=== PATIENT | female | born 1955 | race Caucasian/White ===

== ENCOUNTER 2022-01-09 11:19 | Outpatient (CLI) | payer MEDICARE, SELFPAY ==
[2022-01-09 19:30] LABS: Hemoglobin A1C 6.1 % (<5.7)
[2022-01-09 19:52] LABS: Basophils Absolute Auto 0.1 K/mm3 (0.0-0.1); Basophils Percent Auto 0.8 % (0.2-1.2); Eosinophils Absolute Auto 0.3 K/mm3 (0-0.3); Hematocrit 44.6 % (37.0-47.0); Hemoglobin 13.4 g/dL (12.0-15.0); Immature Granulocyte Absolute 0.02 K/mm3 (0.00-0.031); Immature Granulocyte Percent A 0.3 % (0-0.5); Lymphocytes Absolute Auto 1.97 K/mm3 (0.9-3.2); Lymphocytes Percent Auto 25.4 % (18.3-44.2); Mean Corpuscular Hemoglobin 27.1 pg (26-34); Mean Corpuscular Volume 90.1 fl (80-100); Mean Platelet Volume 11.5 fl (7.4-10.4); Monocytes Absolute Auto 0.6 K/mm3 (0.1-0.6); Monocytes Percent Auto 7.1 % (2.6-8.5); Neutrophils Absolute Auto 4.8 K/mm3 (1.3-6.7); Neutrophils Percent Auto 62.4 % (45.5-73.1); Platelet Count Result 328 k/mm3 (150-375); Red Blood Count 4.95 M/mm3 (4.2-5.4); White Blood Count 7.8 K/mm3 (4.5-10.0)
[2022-01-09 20:02] LABS: Thyroid Stimulating Hormone 0.252 uIU/mL (0.465-4.680)
[2022-01-09 20:15] LABS: Creatinine Urine 135.8 mg/dL
[2022-01-09 20:20] LABS: MALB Creatinine Ratio 11.4 mg/g (0-30); Microalbumin Urine Random 15.5 mg/L (0-16.7)
[2022-01-09 21:46] LABS: Free T4 Free Thyroxine 1.14 ng/mL (0.78-2.19); Vitamin D 25 Hydroxy 28.2 ng/mL
[2022-01-12 05:19] LABS: Triiodothyronine T3 Free 2.7 pg/mL (2.3-4.2)
== END 2022-01-09 11:20 | disposition home or self-care (01) ==
PROVIDERS: PCP Family Medicine; Visit Provider Family Medicine
DX: E03.9 Hypothyroidism, unspecified (principal); F41.9 Anxiety disorder, unspecified; I10 Essential (primary) hypertension; M46.1 Sacroiliitis, not elsewhere classified; R53.83 Other fatigue; E11.9 Type 2 diabetes mellitus without complications; E55.9 Vitamin D deficiency, unspecified
CPT/HCPCS: 36415; 82043; 82306; 82607; 83036; 84439; 84443; 84481; 85025

== ENCOUNTER → 2022-01-28 11:45 | Outpatient (CLI) | payer MEDICARE, SELFPAY ==
--- NOTE | ~2022-01-28 | DEXA_ITS ---
Bone Density Report Name: KAREEM DODSON Age: 66 Sex: Female Ethnicity: White Date of : 1955 Indication: postmenopausal; screening for osteoporosis; height loss; Referring Provider: MARIAA HERNANDEZ Study: Bone densitometry was performed. Exam Date: January 28, 2022 Accession number: [id number] Bone Density: Region BMD T-score Z-score Classification AP Spine (L1-L4) 0.874 -1.6 0.5 Osteopenia Femoral Neck (Left) 0.626 -2.0 -0.3 Osteopenia Total Hip (Left) 0.801 -1.2 0.3 Osteopenia Femoral Neck (Right) 0.597 -2.3 -0.5 Osteopenia Total Hip (Right) 0.780 -1.3 0.1 Osteopenia Total Hip Mean 0.791 -1.3 0.2 Osteopenia World Health Organization criteria for BMD impression classify patients as: Normal (T-score at or above -1.0), Osteopenia (T-score between -1.0 and -2.5), or Osteoporosis (T-score at or below -2.5). 10-year Fracture Risk(1): Major Osteoporotic Fracture 13% Hip Fracture 2.7% Reported Risk Factors: [place] (), Neck BMD=0.597, BMI=25.2 (1) FRAX(R) Version 3.08. Fracture probability calculated for an untreated patient. Fracture probability may be lower if the patient has received treatment. Clinical Information Provided by Patient: Has used the following medications: Vitamin D Patient maximum height was 67 Menopause Age: 46 No regular weight bearing exercise Drinks caffeinated beverages Onset of menses at age 10 Number of children 2 Impression: The patient has low bone mass, based on the Right Femoral Neck T-score. The patient has an estimated ten-year risk of hip fracture of 2.7% and an estimated ten-year risk of major fracture of 13%, based on the WHO FRAX algorithm. Discussion: BONE DENSITY IS LOW AT ONE OR MORE SKELETAL SITES. This patient's lowest T-score is low at one or more skeletal sites. It meets the World Health Organization's (WHO) criteria for ?low bone mass? (T-score between -1.0 and -2.5). The patient's 10-year risk of fracture as calculated by FRAX is less than the threshold where pharmacological therapy is recommended by the National Osteoporosis Foundation (NOF). However, all treatment decisions require clinical judgment and consideration of individual patient factors, including patient preferences, comorbidities, previous drug use, risk factors not captured in the FRAX model (e.g., frailty, falls, vitamin D deficiency, increased bone turnover, interval significant decline in bone density) and possible under or overestimation of fracture risk by FRAX. The patient should follow a healthful lifestyle (good nutrition with adequate calcium and vitamin D, and appropriate weight-bearing exercise). Follow-Up: Consider repeating this study in 2 to 3 years to reassess this patient's status, or sooner if there is some new clinical indication. Reported by:
== END ==
PROVIDERS: PCP Family Medicine; Visit Provider Family Medicine
DX: Z78.0 Asymptomatic menopausal state (principal); M85.88 Other specified disorders of bone density and structure, other site; M85.852 Other specified disorders of bone density and structure, left thigh; M85.851 Other specified disorders of bone density and structure, right thigh
CPT/HCPCS: 77080

== ENCOUNTER 2022-04-15 10:45 | Outpatient (CLI) | payer MEDICARE, SELFPAY ==
[2022-04-15 21:04] LABS: T4 Thyroxine 7.17 ug/dL (5.53-11.0)
[2022-04-15 21:17] LABS: Vitamin D 25 Hydroxy 48.5 ng/mL
[2022-04-15 21:39] LABS: Vitamin B12 > 1000.0 pg/mL (239-931)
[2022-04-18 06:22] LABS: Triiodothyronine T3 Free 2.8 pg/mL (2.3-4.2)
== END 2022-04-15 10:46 | disposition home or self-care (01) ==
PROVIDERS: PCP Family Medicine; Visit Provider Family Medicine
DX: E03.9 Hypothyroidism, unspecified (principal); E11.9 Type 2 diabetes mellitus without complications; E53.8 Deficiency of other specified B group vitamins; E55.9 Vitamin D deficiency, unspecified
CPT/HCPCS: 36415; 82306; 82607; 84436; 84443; 84481

== ENCOUNTER 2022-08-01 07:50 | Outpatient (CLI) | payer MEDICARE, SELFPAY ==
[2022-08-01 19:58] LABS: Hematocrit 45.5 % (37.0-47.0); Hemoglobin 13.9 g/dL (12.0-15.0); Mean Corpuscular HGB Conc 30.5 g/dl (32-36); Mean Corpuscular Hemoglobin 27.9 pg (26-34); Mean Corpuscular Volume 91.4 fl (80-100); Mean Platelet Volume 12.1 fl (7.4-10.4); Platelet Count Result 268 k/mm3 (150-375); Red Blood Count 4.98 M/mm3 (4.2-5.4); White Blood Count 4.4 K/mm3 (4.5-10.0)
[2022-08-01 20:07] LABS: Alanine Aminotransferase 22 U/L (6-35); Albumin Level 4.7 g/dL (3.5-5.1); Alkaline Phosphatase 150 U/L (38-126); Anion Gap 6 mmol/L (8-16); Aspartate Amino Transferase 48 U/L (14-36); Bilirubin,Total 0.5 mg/dL (0.2-1.3); Blood Urea Nitrogen 15 mg/dL (7-17); Calcium 9.4 mg/dL (8.4-10.2); Carbon Dioxide 31 mmol/L (22-30); Chloride 104 mmol/L (98-107); Estimated Glomerular Filt Rate > 60; Glucose 101 mg/dL (65-110); Potassium 3.8 mmol/L (3.4-5.0); Sodium 141 mmol/L (137-145)
[2022-08-01 20:35] LABS: Thyroid Stimulating Hormone 0.516 uIU/mL (0.465-4.680)
[2022-08-01 20:38] LABS: Hemoglobin A1C 6.2 % (<5.7)
[2022-08-01 21:17] LABS: MALB Creatinine Ratio 10.7 mg/g (0-30); Microalbumin Urine Random 22.7 mg/L (0-16.7)
== END 2022-08-01 07:51 | disposition home or self-care (01) ==
LOC: ANHBWCLAB 07:52
PROVIDERS: PCP Family Medicine; Visit Provider Family Medicine
DX: E03.9 Hypothyroidism, unspecified (principal); E11.9 Type 2 diabetes mellitus without complications; F33.1 Major depressive disorder, recurrent, moderate; I10 Essential (primary) hypertension; E53.8 Deficiency of other specified B group vitamins; E55.9 Vitamin D deficiency, unspecified
CPT/HCPCS: 36415; 80053; 82043; 83036; 84443; 85027

== ENCOUNTER 2023-01-13 11:13 | Outpatient (CLI) | payer MEDICARE, SELFPAY ==
[2023-01-13 19:25] LABS: Hemoglobin A1C 6.1 % (<5.7)
[2023-01-13 19:27] LABS: Anion Gap 8 mmol/L (8-16); Blood Urea Nitrogen 16 mg/dL (7-17); Calcium 9.9 mg/dL (8.4-10.2); Carbon Dioxide 29 mmol/L (22-30); Chloride 101 mmol/L (98-107); Cholesterol 198 mg/dL (0-200); Estimated Glomerular Filt Rate > 60; Glucose 101 mg/dL (65-110); HDL Direct 51 mg/dL; Potassium 4.3 mmol/L (3.4-5.0); Sodium 138 mmol/L (137-145); Triglycerides 202 mg/dL (<150)
[2023-01-13 19:38] LABS: LDL Cholesterol Direct 103 mg/dL
[2023-01-13 19:52] LABS: Creatinine Urine 40.4 mg/dL
[2023-01-13 19:55] LABS: Thyroid Stimulating Hormone 0.125 uIU/mL (0.465-4.680)
[2023-01-13 21:14] LABS: MALB Creatinine Ratio < 14.9 mg/g (0-30); Microalbumin Urine Random < 6.0 mg/L (0-16.7)
== END 2023-01-13 11:14 | disposition home or self-care (01) ==
PROVIDERS: PCP Nurse Practitioner Adult Health; Visit Provider Nurse Practitioner Adult Health
DX: E11.9 Type 2 diabetes mellitus without complications (principal); E03.9 Hypothyroidism, unspecified
CPT/HCPCS: 36415; 80048; 80061; 82043; 83036; 84443

== ENCOUNTER 2023-01-21 11:28 | Outpatient (CLI) | payer MEDICARE, SELFPAY ==
--- NOTE | ~2023-01-21 | XR_ITS ---
EXAMINATION: XR hand LT min 3V INDICATION: Left hand pain TECHNIQUE: Three views of the left hand are obtained. COMPARISON: None available FINDINGS: Bone alignment is normal. There is no fracture. There is moderate osteoarthritis of multipl e interphalangeal joints. There is moderate to severe osteoarthritis at the third proximal interphala ngeal joint. The soft tissues are unremarkable. IMPRESSION: 1. Polyarticular osteoarthritis. Reviewed, dictated and finalized at location F.
--- NOTE | ~2023-01-21 | XR_ITS ---
EXAMINATION: XR hand RT min 3V INDICATION: Right hand pain TECHNIQUE: Three views of the right hand are obtained. COMPARISON: None available FINDINGS: Bone alignment is normal. There is no fracture. There is mild osteoarthritis of multiple in terphalangeal joints. The soft tissues are unremarkable. IMPRESSION: 1. Polyarticular osteoarthritis. Reviewed, dictated and finalized at location F.
== END 2023-01-21 11:29 | disposition home or self-care (01) ==
PROVIDERS: PCP Nurse Practitioner Adult Health; Visit Provider Plastic Surgery
DX: M19.041 Primary osteoarthritis, right hand (principal); M19.042 Primary osteoarthritis, left hand
CPT/HCPCS: 73130

== ENCOUNTER 2023-03-24 08:34 | Outpatient (CLI) | payer MEDICARE, SELFPAY | END 2023-03-24 08:35 | disposition home or self-care (01) | LOC: ANHBWCLAB 08:36 | PROVIDERS: PCP Nurse Practitioner Adult Health; Visit Provider Nurse Practitioner Adult Health | DX: E03.9 Hypothyroidism, unspecified (principal) | CPT/HCPCS: 36415; 84443 ==

== ENCOUNTER 2023-07-14 10:58 | Outpatient (CLI) | payer MEDICARE, SELFPAY ==
[2023-07-14 18:17] LABS: Basophils Absolute Auto 0.1 K/mm3 (0.0-0.1); Basophils Percent Auto 1.4 % (0.2-1.2); Eosinophils Absolute Auto 0.2 K/mm3 (0-0.3); Eosinophils Percent Auto 3.7 % (0-4.4); Hematocrit 42.6 % (37.0-47.0); Hemoglobin 12.7 g/dL (12.0-15.0); Immature Granulocyte Absolute 0.01 K/mm3 (0.00-0.031); Immature Granulocyte Percent A 0.2 % (0-0.5); Lymphocytes Absolute Auto 1.95 K/mm3 (0.9-3.2); Lymphocytes Percent Auto 29.9 % (18.3-44.2); Mean Corpuscular HGB Conc 29.8 g/dl (32-36); Mean Corpuscular Hemoglobin 27.2 pg (26-34); Mean Corpuscular Volume 91.2 fl (80-100); Mean Platelet Volume 11.5 fl (7.4-10.4); Monocytes Absolute Auto 0.7 K/mm3 (0.1-0.6); Monocytes Percent Auto 11.2 % (2.6-8.5); Neutrophils Absolute Auto 3.5 K/mm3 (1.3-6.7); Neutrophils Percent Auto 53.6 % (45.5-73.1); Platelet Count Result 309 k/mm3 (150-375); Red Blood Count 4.67 M/mm3 (4.2-5.4); Red Cell Distribution Width 14.3 % (11.5-14.5); White Blood Count 6.5 K/mm3 (4.5-10.0)
[2023-07-14 18:37] LABS: Hemoglobin A1C 6.4 % (<5.7)
[2023-07-14 18:58] LABS: Thyroid Stimulating Hormone Reflex 0.706 uIU/mL (0.465-4.68)
[2023-07-14 19:00] LABS: Alanine Aminotransferase 16 U/L (6-35); Albumin Level 4.5 g/dL (3.5-5.1); Alkaline Phosphatase 152 U/L (38-126); Anion Gap 8 mmol/L (8-16); Aspartate Amino Transferase 46 U/L (14-36); Bilirubin,Total 0.9 mg/dL (0.2-1.3); Blood Urea Nitrogen 16 mg/dL (7-17); Carbon Dioxide 27 mmol/L (22-30); Chloride 103 mmol/L (98-107); Cholesterol 185 mg/dL (0-200); Estimated Glomerular Filt Rate > 60; Glucose 97 mg/dL (65-110); HDL Direct 51 mg/dL; Magnesium 2.2 mg/dL (1.6-2.3); Potassium 3.6 mmol/L (3.4-5.0); Sodium 138 mmol/L (137-145); Triglycerides 171 mg/dL (<150)
[2023-07-14 19:10] LABS: LDL Cholesterol Direct 104 mg/dL
[2023-07-14 20:16] LABS: Folic Acid 11.6 ng/mL (2.76->20); Vitamin B12 > 1000.0 pg/mL (239-931)
== END 2023-07-14 10:59 | disposition home or self-care (01) ==
LOC: ANHBWCLAB 11:00
PROVIDERS: PCP Nurse Practitioner Adult Health; Visit Provider Nurse Practitioner Adult Health
DX: E55.9 Vitamin D deficiency, unspecified (principal); E53.8 Deficiency of other specified B group vitamins; I10 Essential (primary) hypertension; E11.9 Type 2 diabetes mellitus without complications
CPT/HCPCS: 36415; 80053; 80061; 82306; 82607; 82746; 83036; 83735; 84443; 85025

== ENCOUNTER 2023-10-19 08:34 | Outpatient (CLI) | payer MEDICARE, SELFPAY ==
[2023-10-19 20:40] LABS: Thyroid Stimulating Hormone 0.638 uIU/mL (0.465-4.680)
[2023-10-19 21:00] LABS: Vitamin B12 > 1000.0 pg/mL (239-931)
== END 2023-10-19 08:35 | disposition home or self-care (01) ==
LOC: ANHBWCLAB 08:35
PROVIDERS: PCP Nurse Practitioner Adult Health; Visit Provider Nurse Practitioner Adult Health
DX: R79.89 Other specified abnormal findings of blood chemistry (principal); E03.9 Hypothyroidism, unspecified; L80 Vitiligo
CPT/HCPCS: 36415; 82607; 84443

== ENCOUNTER 2023-12-23 11:29 | Outpatient (CLI) | payer MEDICARE, SELFPAY ==
[2023-12-23 20:04] LABS: Creatinine Urine 30.6 mg/dL
[2023-12-23 20:19] LABS: Estimated Glomerular Filt Rate > 60
[2023-12-23 20:21] LABS: MALB Creatinine Ratio < 19.6 mg/g (0-30); Microalbumin Urine Random < 6.0 mg/L (0-16.7)
== END 2023-12-23 11:30 | disposition home or self-care (01) ==
PROVIDERS: PCP Nurse Practitioner Adult Health; Visit Provider Nurse Practitioner Adult Health
DX: E11.9 Type 2 diabetes mellitus without complications (principal)
CPT/HCPCS: 36415; 82043; 82565

== ENCOUNTER 2024-01-14 11:52 | Outpatient (CLI) | payer MEDICARE, SELFPAY ==
--- NOTE | ~2024-01-14 | XR_ITS ---
XR knee RT 3V Ordering provider: Livier Hi APRN History: . M25.561 - Pain in right knee . Comparison: None. FINDINGS: BONES: No acute fracture or dislocation. JOINT SPACES: Normal. SOFT TISSUES: Normal. IMPRESSION: No acute osseous abnormality right knee. Reviewed, dictated and finalized at location A.
== END 2024-01-14 11:53 | disposition home or self-care (01) ==
PROVIDERS: PCP Nurse Practitioner Adult Health; Visit Provider Nurse Practitioner Adult Health
DX: M25.561 Pain in right knee (principal)
CPT/HCPCS: 73562

== ENCOUNTER 2024-02-01 10:10 | Outpatient (CLI) | payer MEDICARE, SELFPAY ==
[2024-02-01 18:54] LABS: Alanine Aminotransferase 16 U/L (6-35); Albumin Level 4.6 g/dL (3.5-5.1); Alkaline Phosphatase 142 U/L (38-126); Anion Gap 7 mmol/L (4-12); Aspartate Amino Transferase 45 U/L (14-36); Bilirubin,Total 0.7 mg/dL (0.2-1.3); Blood Urea Nitrogen 17 mg/dL (7-17); Calcium 9.8 mg/dL (8.4-10.2); Carbon Dioxide 30 mmol/L (22-30); Chloride 102 mmol/L (98-107); Cholesterol 202 mg/dL (0-200); Estimated Glomerular Filt Rate > 60; Glucose 103 mg/dL (65-110); HDL Direct 55 mg/dL; Potassium 4.3 mmol/L (3.4-5.0); Sodium 139 mmol/L (137-145); Triglycerides 203 mg/dL (<150)
[2024-02-01 19:05] LABS: LDL Cholesterol Direct 93 mg/dL
[2024-02-01 19:23] LABS: Thyroid Stimulating Hormone 0.662 uIU/mL (0.465-4.680)
[2024-02-01 20:41] LABS: Creatinine Urine 122.7 mg/dL
[2024-02-01 20:47] LABS: MALB Creatinine Ratio 6.1 mg/g (0-30); Microalbumin Urine Random 7.5 mg/L (0-16.7)
[2024-02-01 21:52] LABS: Hemoglobin A1C 6.5 % (<5.7)
[2024-02-01 22:01] LABS: Vitamin D 25 Hydroxy 40.7 ng/mL
== END 2024-02-01 10:11 | disposition home or self-care (01) ==
PROVIDERS: PCP Nurse Practitioner Adult Health; Visit Provider Nurse Practitioner Adult Health
DX: E11.9 Type 2 diabetes mellitus without complications (principal); E55.9 Vitamin D deficiency, unspecified; E53.8 Deficiency of other specified B group vitamins; E03.9 Hypothyroidism, unspecified
CPT/HCPCS: 36415; 80053; 80061; 82043; 82306; 82565; 82607; 83036; 84443

== ENCOUNTER 2024-07-12 08:53 | Outpatient (CLI) | payer MEDICARE, SELFPAY ==
--- NOTE | ~2024-07-12 | XR_ITS ---
Lumbosacral Spine: AP and lateral views Clinical History: Pain Findings: The normal lordotic curve is maintained. No fracture or subluxation. There is advanced dege nerative disc narrowing at L5-S1. There is moderate degenerative disc change in the range of the lumb ar spine. There is advanced facet arthropathy throughout the lumbar spine. The sacroiliac joints are normally outlined. Impression: Moderate to advanced degenerative spondylosis, as above. Reviewed, dictated and finalized at location M. Impression: Moderate to advanced degenerative spondylosis, as above.
--- NOTE | ~2024-07-12 | XR_ITS ---
AP view of the pelvis and AP and lateral views of the left hip Clinical history: Pain Findings: No acute fracture or dislocation is seen. Osseous alignment is anatomic. Bilateral hip and SI joint spaces are preserved. Soft tissues are unremarkable. Impression: No significant abnormality is seen. Reviewed, dictated and finalized at [facility]. Impression: No significant abnormality is seen.
--- OUTSIDE RECORDS SUMMARY | 2024-07-12 09:23 | XMS_ITS | Referral Summary ---
Author Organization [facility] Address [address] [place] [address] Care Team Providers Care Glass Washer Name Role Phone Raymon Collier MD Primary Care Provider [phone] [phone] Allergies No known active allergies Medications atorvastatin (LIPITOR) 40 mg tablet 8 Active levothyroxine (SYNTHROID, LEVOTHROID) 100 mcg tablet 8 Active venlafaxine XR (EFFEXOR-XR) 75 mg 24 hr capsule 8 Active irbesartan-hydr oCHLOROthiazide (AVALIDE) 300-12.5 mg per tablet Take 1 tablet by mouth daily 3 9 Active ALPRAZolam (XANAX) 0.5 mg tablet Take by mouth 2 (two) times a day as needed 1 Active metFORMIN XR (GLUCOPHAGE XR) 500 mg 24 hr tablet Take 1 tablet (500 mg total) by mouth daily 2 Active cholecalciferol (VITAMIN D-3) 5,000 unit capsule Take 1 capsule (5,000 Units total) by mouth daily 2 Active Vitamin B-12 5,000 mcg tablet, sublingual PLACE 1 UNDER THE TONGUE ONCE DAILY 2 Active loteprednol (LOTEMAX) 0.5 % ophthalmic suspension Administer 1 drop into the right eye daily 5 mL 11 3 Active Active Problems Problem Noted Date Diagnosed Date 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 Assessment & Plan (01/21/2022 11:23 AM CDT): Clear graft CPM Assessment & Plan (12/20/2020 4:15 PM CDT): Clear graft CPM Aphakia of eye, right 12/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 Assessment & Plan (01/21/2022 11:23 AM CDT): Hx of explant of SN60WF Assessment & Plan (12/20/2020 4:16 PM CDT): Hx of explant of SN60WF Corneal endothelial dystrophy 05/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 Instructions given A.m. 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 Mayo S/p PKP OD Assessment & Plan (01/21/2022 11:24 AM CDT): Confocal 06/14 OS 1074 1100 933 Uncountable - continue polycarbonate lenses - continue LTX OD qdaily (hx PKP OD) - good vision OS, able to perform ADLS + monocular will monitor. Plan: RTC 12 months Assessment & Plan (12/20/2020 3:32 PM CDT): Confocal 06/14 OS 1074 1100 933 Uncountable - continue polycarbonate lenses - continue LTX OD qdaily (hx PKP OD) - good vision OS, able to perform ADLS + monocular will monitor. Plan: RTC 12 months Assessment & Plan (05/17/2019 11:08 AM KNIT GOODS PRESS HAND): Confocal 06/14 12/12 09/12 Today OS 1074 1100 933 Uncountable - continue polycarbonate lenses - continue LTX OD qdaily (hx PKP OD) - confocal today uncountable OS with mild, stable superior stromal edema, never started Brijesh - Plan: RTC 6 months Assessment & Plan (09/23/2018 12:56 PM CDT): Confocal 06/14 12/12 Today OS 1074 1100 933 -stable -6-8 mos w/ repeat confocal Polycarbonate lenses with new spectacles Mild superior edema OS-Brijesh 128 p.r.n. In the future Assessment & Plan (12/01/2017 11:33 AM CDT): Confocal 12/01/17 1100-OS, stable from 1074 (6mo ago) F/u 8mo with repeat confocal Assessment & Plan (12/01/2017 10:17 AM CDT): -Management per Dr. Walters -Pt to get cell count today -status post (s/p) penetrating keratoplasty (PKP) OD Social History Tobacco Use Types Packs/Day Years Used Date Smoking Tobacco: Never Smokeless Tobacco: Never Comments Unknown Sex and Gender Information Value Date Recorded Sex Assigned at Not on file Legal Sex Female 3:13 PM KNIT GOODS PRESS HAND Gender Identity Not on file Sexual Orientation Not on file Last Filed Vital Signs Vital Sign Reading Time Taken Comments Blood Pressure 166/98 03/14/2014 3:48 PM KNIT [employer] PRESS HAND Pulse 93 03/14/2014 3:48 PM KNIT [employer] PRESS HAND Temperature - - Respiratory Rate - - Oxygen Saturation - - Inhaled Oxygen Concentration - - Weight 73 kg (161 lb) 03/14/2014 3:48 PM KNIT GOODS PRESS HAND Height 167.6 cm (5' 6 ) 12/07/2023 9:13 AM CDT Body Mass Index 25.99 03/14/2014 3:48 PM KNIT GOODS PRESS HAND Plan of Treatment Not on file Procedures Procedure Name Priority Date/Time Associated Diagnosis Comments SCREENING MAMMOGRAM BILATERAL W BAKARI Schedule Routine, Read Routine (OP Routine) 12/07/2023 9:21 AM CDT Screening mammogram, encounter for from Last 3 Months or Most Recently Relevant to Health Maintenance Results * Screening Mammogram Bilateral W Bakari (12/07/2023 9:21 AM CDT) Anatomical Region Laterality Modality Breast Bilateral Mammography 12/07/2023 9:41 AM CDT Impressions 12/07/2023 9:41 AM CDT There is no mammographic evidence of malignancy. A 1 year screening mammogram is recommended. BI-RADS: 2 - Benign. The patient has been or will be contacted. The patient will be entered into a reminder system with a target due date of 1 year for her next mammogram. Electronically signed by: Michelle Valladares M.D. Narrative 12/07/2023 9:41 AM CDT EXAMINATION: SCREENING MAMMOGRAM BILATERAL W BAKARI ORDERING HEALTHCARE PROVIDER: SELF SCREENING MAMMOGRAM HISTORY: Routine screening mammography. COMPARISON: 10/14/2022, 08/27/2021, 08/22/2021, 05/08/2020, 02/24/2019 TECHNIQUE: CC and MLO views of the bilateral breasts were obtained with digital technique using breast tomosynthesis with C view. Computer aided detection was utilized. FINDINGS: DENSITY: The tissue of the bilateral breasts is heterogeneously dense, which may obscure small masses. BREASTS: There are postsurgical changes in the superior right breast. A cyst is again seen in the posterior left breast. There are no suspicious masses, suspicious calcifications, or other suspicious findings in either breast. There has been no suspicious interval change. us Self Screening Mammogram IMG MAMMO PROCEDURES Fi nal Result from Last 3 Months or Most Recently Relevant to Health Maintenance Insurance [employer] MEDICARE AETNA MEDICARE AETNA MEDICARE Care Teams Glass Washer Relationship Specialty Start Date End Date Raymon Collier MD PCP - General Family Practice 01/21/22
--- OUTSIDE RECORDS SUMMARY | 2024-07-12 09:23 | XMS_ITS | Clinical Summary ---
Author Organization [facility] Address [address] [place] [address] Care Team Providers Care Bellman Name Role Phone Raymon Collier MD Primary Care Provider [phone] Allergies No known active allergies Medications atorvastatin [...] months Assessment & Plan (05/17/2019 11:25 AM SLURRY MIXER): Brijesh 128 drops/ointment p.r.n. Instructions given A.m. [...] months Assessment & Plan (05/17/2019 11:08 AM SLURRY MIXER): Confocal 06/14 12/12 09/12 Today OS 1074 [...] -status post (s/p) penetrating keratoplasty (PKP) OD Surgical History Surgery Date Site/Laterality Comments CATARACT EXTRACTION RETINAL DETACHMENT SURGERY BREAST BIOPSY 04/27/1999 - 04/26/2000 Right benign surgical bx Medical History Medical History Date Comments Retinal detachment Cataract Family History Medical History Relation Name Comments Heart disease Father Family history of cardiac disorder - (Added by LUKE Conv) Hypertension Mother Family history of hypertension - (Added by LUKE Conv) Breast cancer Neg Hx Ovarian cancer Neg Hx Thyroid cancer Neg Hx Relation Name Status Comments Father Mother Social History Tobacco Use Types Packs/Day Years Used Date Smoking Tobacco: Never Smokeless Tobacco: Never Comments Unknown Sex and Gender Information Value Date Recorded Sex Assigned at Not on file Legal Sex Female 3:13 PM SLURRY MIXER Gender Identity Not on file Sexual Orientation Not on file Obstetrics History Para Term AB IAB SAB Ectopic Multiple Livin g Live Births 3 2 2 Date Outcome GA Total Labor Labor//3rd Weight Sex Type Anes PTL Mary A1 A5 Name Clin Term Term Last Filed Vital Signs Vital Sign Reading Time Taken Comments Blood Pressure 166/98 03/14/2014 3:48 PM SLURRY MIXER Pulse 93 03/14/2014 3:48 PM SLURRY MIXER Temperature - - Respiratory Rate - - Oxygen Saturation - - Inhaled Oxygen Concentration - - Weight 73 kg (161 lb) 03/14/2014 3:48 PM SLURRY MIXER Height 167.6 cm (5' 6 ) 12/07/2023 9:13 AM CDT Body Mass Index 25.99 03/14/2014 3:48 PM SLURRY MIXER Plan of Treatment Health Maintenance Due Date Last Done Comments Colon Cancer Screening-Colonoscopy 1955 Depression Screening 1955 Fall Risk Assessment 1955 Hepatitis C Screening 1955 Osteoporosis Screening-Bone Density Scan 1955 Hepatitis B Screening 1971 Pneumococcal vaccine 65+ (1 of 1 - PCV) 2003 Zoster Vaccine (2 of 3) 12/04/2016 10/09/2016 Well Visit 65+ 2018 Influenza Vaccine (#1) 2023 01/12/2019, 2017 Breast Cancer Screening-Mammogram 12/06/2024 12/07/2023, 10/14/2022, 08/22/2021, Additional history exists DTaP/Tdap/Td Vaccine (2 - Td or Tdap) 10/21/2027 10/20/2017 Procedures Procedure Name Priority Date/Time Associated Diagnosis [...] Relevant to Health Maintenance Insurance AETNA MEDICARE [facility] MEDICARE [facility] MEDICARE Care Teams Bellman Relationship Specialty Start Date End Date Raymon Collier MD PCP - General Family Practice 01/21/22
[2024-07-12 19:32] LABS: Basophils Absolute Auto 0.1 K/mm3 (0.0-0.1); Basophils Percent Auto 1.1 % (0.2-1.2); Eosinophils Absolute Auto 0.3 K/mm3 (0-0.3); Eosinophils Percent Auto 4.8 % (0-4.4); Hematocrit 41.5 % (37.0-47.0); Hemoglobin 12.1 g/dL (12.0-15.0); Immature Granulocyte Absolute 0.01 K/mm3 (0.00-0.031); Immature Granulocyte Percent A 0.2 % (0-0.5); Lymphocytes Absolute Auto 1.74 K/mm3 (0.9-3.2); Lymphocytes Percent Auto 28.6 % (18.3-44.2); Mean Corpuscular HGB Conc 29.2 g/dl (32-36); Mean Corpuscular Hemoglobin 25.4 pg (26-34); Mean Corpuscular Volume 87.2 fl (80-100); Mean Platelet Volume 10.4 fl (7.4-10.4); Monocytes Absolute Auto 0.6 K/mm3 (0.1-0.6); Monocytes Percent Auto 9.7 % (2.6-8.5); Neutrophils Absolute Auto 3.4 K/mm3 (1.3-6.7); Neutrophils Percent Auto 55.6 % (45.5-73.1); Platelet Count Result 337 k/mm3 (150-375); Red Blood Count 4.76 M/mm3 (4.2-5.4); Red Cell Distribution Width 15.5 % (11.5-14.5); White Blood Count 6.1 K/mm3 (4.5-10.0)
[2024-07-12 19:40] LABS: Alanine Aminotransferase 18 U/L (6-35); Albumin Level 4.4 g/dL (3.5-5.1); Alkaline Phosphatase 148 U/L (38-126); Anion Gap 10 mmol/L (4-12); Aspartate Amino Transferase 30 U/L (14-36); Bilirubin,Total 0.7 mg/dL (0.2-1.3); Blood Urea Nitrogen 14 mg/dL (7-17); Calcium 9.7 mg/dL (8.4-10.2); Carbon Dioxide 28 mmol/L (22-30); Chloride 102 mmol/L (98-107); Cholesterol 203 mg/dL (0-200); Estimated Glomerular Filt Rate > 60; Glucose 104 mg/dL (65-110); HDL Direct 49 mg/dL; Potassium 4.1 mmol/L (3.4-5.0); Sodium 140 mmol/L (137-145); Triglycerides 276 mg/dL (<150)
[2024-07-12 19:42] LABS: Hypochromasia 1+; Ovalocytes 1+; Platelet Estimate Adequate (Adequate); Schistocytes None Seen
[2024-07-12 19:52] LABS: LDL Cholesterol Direct 95 mg/dL
[2024-07-12 20:02] LABS: Hemoglobin A1C 6.3 % (<5.7)
[2024-07-12 20:04] LABS: Vitamin D 25 Hydroxy 32.4 ng/mL
== END 2024-07-12 08:54 | disposition home or self-care (01) ==
LOC: ANHBWCLAB 08:55
PROVIDERS: PCP Family Medicine; Visit Provider Family Medicine
DX: M25.552 Pain in left hip (principal); M47.897 Other spondylosis, lumbosacral region; M51.369 Other intervertebral disc degeneration, lumbar region without mention of lumbar back pain or lower extremity pain; M47.896 Other spondylosis, lumbar region; L63.9 Alopecia areata, unspecified; E03.9 Hypothyroidism, unspecified; I10 Essential (primary) hypertension; E78.2 Mixed hyperlipidemia; E11.9 Type 2 diabetes mellitus without complications; E53.8 Deficiency of other specified B group vitamins; E55.9 Vitamin D deficiency, unspecified; Z79.899 Other long term (current) drug therapy
CPT/HCPCS: 36415; 72100; 73502; 80053; 80061; 82306; 82607; 83036; 84443; 85025

== ENCOUNTER 2025-04-17 11:00 | Outpatient (CLI) | payer MEDICARE, SELFPAY ==
[2025-04-17 11:24] LABS: Hematocrit 43.4 % (37.0-47.0); Hemoglobin 13.8 g/dL (12.0-15.0); Immature Granulocyte Percent A 0.5 % (0-0.5); Lymphocytes Absolute Auto 1.45 K/mm3 (0.9-3.2); Mean Corpuscular HGB Conc 31.8 g/dl (32-36); Mean Corpuscular Hemoglobin 28.1 pg (26-34); Mean Corpuscular Volume 88.4 fl (80-100); Nucleated Red Blood Cells Absolute Auto 0.000 K/mm3 (0.0-0.012); Nucleated Red Blood Cells Perc 0.0 % (0.0-0.2); Platelet Count Result 295 k/mm3 (150-375); Red Blood Count 4.91 M/mm3 (4.2-5.4); White Blood Count 5.9 K/mm3 (4.5-10.0)
[2025-04-17 11:38] LABS: MALB Creatinine Ratio 6.8 mg/g (0-30)
[2025-04-17 11:43] LABS: Alanine Aminotransferase 19 U/L (6-35); Albumin Level 4.5 g/dL (3.5-5.1); Alkaline Phosphatase 145 U/L (38-126); Anion Gap 8 mmol/L (4-12); Aspartate Amino Transferase 27 U/L (14-36); Bilirubin,Total 0.8 mg/dL (0.2-1.3); Blood Urea Nitrogen 17 mg/dL (7-17); Calcium 9.7 mg/dL (8.4-10.2); Carbon Dioxide 28 mmol/L (22-30); Chloride 102 mmol/L (98-107); Cholesterol 177 mg/dL (0-200); Estimated Glomerular Filt Rate > 60; Glucose 101 mg/dL (65-110); HDL Direct 54 mg/dL; Potassium 3.9 mmol/L (3.4-5.0); Sodium 138 mmol/L (137-145); Total Protein 7.8 g/dL (6.3-8.2); Triglycerides 131 mg/dL (<150)
[2025-04-17 11:44] LABS: Hemoglobin A1C 6.1 % (<5.7)
[2025-04-17 12:19] LABS: Thyroid Stimulating Hormone 0.895 uIU/mL (0.465-4.680)
[2025-04-17 12:39] LABS: Vitamin B12 360.0 pg/mL (239-931)
--- OUTSIDE RECORDS SUMMARY | 2025-04-17 12:53 | XMS_ITS | Clinical Summary ---
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 Instructions given A.m. 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 OS has some peripheral CRS Assessment & Plan (02/25/2022 10:05 AM CDT): [...] months Assessment & Plan (05/17/2019 11:08 AM ARCHEOLOGY FACULTY MEMBER): Confocal 06/14 12/12 5/19 Today OS 1074 1100 933 Uncountable - [...] -status post (s/p) penetrating keratoplasty (PKP) OD Encounters Date Type Department Care Team Description 03/21/2025 8:40 AM ARCHEOLOGY FACULTY MEMBER Office Visit [facility] [address] [facility] [address] [place] [phone] Zeb Rodríguez MD PhD Aphakia of eye, right (Primary Dx); Retinal detachment with multiple breaks, right eye; Diabetes mellitus type 2 without retinopathy (HCC) 02/13/2025 11:45 AM CDT - 02/13/2025 11:59 PM CDT Hospital Encounter [facility] [address] [place] [address] Screening mammogram, encounter for Discharge Disposition: Discharge to home or self care 02/13/2025 8:30 AM CDT Office Visit [facility]mology [address] [place] [phone] Zoe Meza MD PhD Fuchs' corneal dystrophy of both eyes (Primary Dx) 02/13/2025 Telephone [facility]hthalmology [address] [place] [phone] Zeb Rodríguez MD PhD 02/06/2025 Telephone [facility]hthalmology [address] [place] [id number] Zoe Meza MD PhD No Show from Last 3 Months Surgical History Surgery Date Site/Laterality Comments CATARACT EXTRACTION RETINAL DETACHMENT SURGERY BREAST BIOPSY 04/27/1999 - 04/26/2000 Right benign surgical bx Medical History Medical History Date Comments Retinal detachment Cataract Family History Medical History Relation Name Comments Heart disease Father Family history of cardiac disorder - (Added by TW Conv) Hypertension Mother Family history of hypertension - (Added by TW Conv) Breast cancer Neg Hx Ovarian cancer Neg Hx Thyroid cancer Neg Hx Relation Name Status Comments Father Mother Social History Tobacco Use Types Packs/Day Years Used Date Smoking Tobacco: Never Smokeless Tobacco: Never Comments Unknown Sex and Gender Information Value Date Recorded Sex Assigned at Not on file Legal Sex Female 3:13 PM ARCHEOLOGY FACULTY MEMBER Gender Identity Not on file Sexual Orientation Not on file Obstetrics History Para Term AB IAB SAB Ectopic Multiple Livin g Live Births 3 2 2 2 Date Outcome GA Total Labor Labor/2nd/3rd Weight Sex Type Anes PTL Mary A1 A5 Name Clin Term Term Last Filed Vital Signs Vital Sign Reading Time Taken Comments Blood Pressure 166/98 03/14/2014 3:48 PM ARCHEOLOGY FACULTY MEMBER Pulse 93 03/14/2014 3:48 PM ARCHEOLOGY FACULTY MEMBER Temperature - - Respiratory Rate - - Oxygen Saturation - - Inhaled Oxygen Concentration - - Weight 68 kg (150 lb) 02/13/2025 11:51 AM CDT Height 167.6 cm (5' 6) 02/13/2025 11:51 AM CDT Body Mass Index 24.21 02/13/2025 11:51 AM CDT Plan of Treatment Health Maintenance Due Date Last Done Comments Albumin Creatinine Ratio, Urine 1955 Colon Cancer Screening-Colonoscopy 1955 Depression Screening 1955 Fall Risk Assessment 1955 Hemoglobin A1C 1955 Hepatitis C Screening 1955 Osteoporosis Screening-Bone Density Scan 1955 eGFR 1955 Foot Exam 1955 Lipid Panel 1955 Hepatitis B Screening 1971 Zoster Vaccine (2 of 3) 12/04/2016 10/09/2016 Well Visit 65+ 2018 Influenza Vaccine (#1) 2024 2, 02/07/2021, 02/08/2020, Additional history exists Breast Cancer Screening-Mammogram 02/13/2026 02/13/2025, 12/07/2023, 10/14/2022, Additional history exists Dilated Eye Exam 03/21/2026 03/21/2025, , 02/01/2024, Additional history exists DTaP/Tdap/Td Vaccine (5 - Td or Tdap) 10/21/2027 10/20/2017, 04/13/2017, 10/08/2016, Additional history exists Pneumococcal vaccine 65+ Completed 11/21/2019, 08/0 12/2015 Procedures Procedure Name Priority Date/Time Associated Diagnosis Comments OCT, RETINA - OU - BOTH EYES Routine 03/21/2025 9:21 AM ARCHEOLOGY FACULTY MEMBER Retinal detachment with multiple breaks, right eye SCREENING MAMMOGRAM BILATERAL W BAKARI Schedule Routine, Read Routine (OP Routine) 02/13/2025 11:58 AM CDT Screening mammogram, encounter for from Last 3 Months Results * OCT, Retina - OU - Both Eyes (03/21/2025 9:21 AM ARCHEOLOGY FACULTY MEMBER) Anatomical Region Laterality Modality Head Optical Coherenc e Tomography Narrative 03/21/2025 9:21 AM ARCHEOLOGY FACULTY MEMBER Right Eye Quality was good. Left Eye Quality was good. Notes No CME OU Zeb Rodríguez MD PhD OPHTH TOMOGRAPHY F inal Result * Screening Mammogram Bilateral W Bakari (02/13/2025 11:58 AM CDT) Anatomical Region Laterality Modality Breast Bilateral Mammography Impressions 02/13/2025 1:09 PM CDT Bilateral No evidence of malignancy in either breast. OVERALL BI-RADS FINAL ASSESSMENT: 1 - Negative RECOMMENDATION: Recommend bilateral annual screening mammography. If supplemental screening is desired for heterogeneously dense breast tissue, consider breast MRI every 1-2 years. If breast MRI cannot be performed, contrast-enhanced mammography is an alternative. Narrative 02/13/2025 1:09 PM CDT EXAMINATION: Screening Mammogram Bilateral W Bakari: 02/13/2025 COMPARISON: Relevant prior studies available at the time of interpretation were reviewed, including the most recent mammogram on: 12/07/2023. TECHNIQUE: Mammography was performed with 2D and 3D digital breast tomosynthesis (DBT) images. CAD was utilized. BREAST PARENCHYMAL COMPOSITION: The breasts are heterogeneously dense, which may obscure small masses. FINDINGS: Bilateral There is no suspicious mass, calcification, or architectural distortion in either breast. Self Screening Mammogram IMG MAMMO PROCEDURES Fi nal Result from Last 3 Months Insurance T MEDICARE [facility] MEDICARE [facility] MEDICARE Care Teams Engineering Programmer Relationship Specialty Start Date End Date Raymon Collier MD PCP - General Family Practice 01/21/22
== END 2025-04-17 11:01 | disposition home or self-care (01) ==
PROVIDERS: PCP Family Medicine; Visit Provider Family Medicine
DX: E11.9 Type 2 diabetes mellitus without complications (principal); F41.9 Anxiety disorder, unspecified; E03.9 Hypothyroidism, unspecified; E55.9 Vitamin D deficiency, unspecified; E53.8 Deficiency of other specified B group vitamins
CPT/HCPCS: 36415; 80053; 80061; 82043; 82306; 82607; 83036; 84443; 85025

== ENCOUNTER 2025-04-24 12:53 | Outpatient (CLI) | payer MEDICARE, SELFPAY ==
--- NOTE | ~2025-04-24 | DEXA_ITS ---
Bone Density Report Name: KAREEM DODSON Age: 70 Sex: Female Ethnicity: White Date of : 1955 Indication: osteopenia; height loss; Referring Provider: MARIAA HERNANDEZ Study: Bone densitometry was performed. Exam Date: April 24, 2025 Accession number: [id number] Bone Density: Region BMD T-score Z-score Classification AP Spine(L1-L4) 0.902 -1.3 0.9 Osteopenia Femoral Neck (Left) 0.604 -2.2 -0.3 Osteopenia Total Hip (Left) 0.733 -1.7 -0.1 Osteopenia Femoral Neck (Right) 0.549 -2.7 -0.8 Osteoporosis Total Hip (Right) 0.700 -2.0 -0.4 Osteopenia Total Hip Mean 0.717 -1.9 -0.3 Osteopenia World Health Organization criteria for BMD impression classify patients as: Normal (T-score at or above -1.0), Osteopenia (T-score between -1.0 and -2.5), or Osteoporosis (T-score at or below -2.5). 10-year Fracture Risk: FRAX not reported because: Some T-score for Spine Total or Hip Total or Femoral Neck at or below -2.5 Previous Exams: Region Exam Age BMD T-score BMD Change BMD Change Date g/cm2 vs Baseline vs Previous AP Spine (L1-L4) 04/24/2025 70 0.902 -1.3 0.001 (0.1%)# 0.028 (3.2%)* 01/28/2022 66 0.874 -1.6 -0.027 (-3.0%) -0.033 (-3.6%) 08/02/2015 60 0.907 -1.3 0.006 (0.7%)# 0.006 (0.7%)# 02/01/2013 57 0.901 -1.3 Total Hip(Left) 04/24/2025 70 0.733 -1.7 -0.117 (-13.8% -0.068 (-8.5%) 01/28/2022 66 0.801 -1.2 -0.049 (-5.8%) -0.027 (-3.3%) 08/02/2015 60 0.828 -0.9 -0.022 (-2.6%) -0.022 (-2.6%) 02/01/2013 57 0.850 -0.8 Total Hip(Right) 04/24/2025 70 0.700 -2.0 -0.125 (-15.1% -0.079 (-10.2% 01/28/2022 66 0.780 -1.3 -0.045 (-5.5%) -0.017 (-2.2%) 08/02/2015 60 0.797 -1.2 -0.028 (-3.4%) -0.028 (-3.4%) 02/01/2013 57 0.825 -1.0 *Denotes significance at 95% confidence level, LSC for AP Spine = 0.022 g/cm2, LSC for Total Hip = 0.027 g/cm2 # Denotes dissimilar scan types or analysis methods Clinical Information Provided by Patient: Has used the following medications: Vitamin D Patient maximum height was 67 Menopause Age: 43 No regular weight bearing exercise Drinks caffeinated beverages Onset of menses at age 11 Number of children 2 Impression: The patient has osteoporosis, based on the Right Femoral Neck T-score. The BMD for the Total Hip(Left) decreased, changing by -8.5% since the last DXA exam. The BMD for the Total Hip(Right) decreased, changing by -10.2% since the last DXA exam. Discussion: INCREASED RISK OF FRACTURE. BONE DENSITY IS UNDESIRABLY LOW AT ONE OR MORE SKELETAL SITES, CONSISTENT WITH POSTMENOPAUSAL OSTEOPOROSIS. This patient's lowest T-score meets the World Health Organization's (WHO) criteria for osteoporosis at one or more sites (T-score -2.5 or below). In untreated patients, the risk of osteoporotic fracture increases approximately two-fold for each 1.0 SD decrease in T-score. Low bone density is not the only risk factor for fracture; also consider factors such as patient's age, frailty or poor health, risk of falling, risk of injury, previous osteoporotic fracture, family history of osteoporosis, cigarette smoking, low body weight, etc. Not everyone with low bone mineral density has osteoporosis; osteomalacia and other metabolic bone disorders should also be considered. Patients who have osteoporosis should be evaluated for specific diseases and conditions (secondary causes) that may cause or contribute to bone loss. The [place] [employer] Endocrinologists (AACE) and National Osteoporosis Foundation (NOF) recommend pharmacologic intervention for all postmenopausal women whose T-score is in this range. The patient should follow a healthful lifestyle (good nutrition with adequate calcium and vitamin D, and appropriate weight-bearing exercise). Follow-Up: Consider a repeat BMD and Vertebral Fracture Assessment (VFA) exam in 2 years or sooner if medically necessary, to reassess this patient's status. Reported by: MAKI on 04/24/2025 1:34:00 PM. Reviewed, dictated and finalized at location A.
--- OUTSIDE RECORDS SUMMARY | 2025-04-24 13:03 | XMS_ITS | Clinical Summary ---
Author Organization [facility] Address [address] [place] [address] Care Team Providers Care Solaris Administrator Name Role Phone Raymon Collier MD Primary Care Provider [phone] Allergies No known active allergies Medications atorvastatin [...] months Assessment & Plan (05/17/2019 11:25 AM FOOD AND DRUG INSPECTOR): Brijesh 128 drops/ointment p.r.n. Instructions given A.m. 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 [...] months Assessment & Plan (05/17/2019 11:08 AM FOOD AND DRUG INSPECTOR): Confocal 06/14 12/12 5/19 Today OS 1074 [...] Department Care Team Description 03/21/2025 8:40 AM FOOD AND DRUG INSPECTOR Office Visit [facility] [address] [facility] [address] [place] [phone] Zeb Rodríguez MD PhD Aphakia of eye, right (Primary Dx); Retinal detachment with multiple breaks, right eye; Diabetes mellitus type 2 without retinopathy (HCC) 02/13/2025 11:45 AM CDT - 02/13/2025 11:59 PM CDT Hospital Encounter [facility] [address] [place] [address] Screening mammogram, encounter for Discharge Disposition: Discharge to home or self care 02/13/2025 8:30 AM CDT Office Visit [facility] [address] [place] [phone] Zoe Meza MD PhD Fuchs' corneal dystrophy of both eyes (Primary Dx) 02/13/2025 Telephone [facility] [address] [place] [phone] Zeb Rodríguez MD PhD 02/06/2025 Telephone [facility] [address] [place] [phone] Zoe Meza MD PhD No Show from [...] on file Legal Sex Female 3:13 PM FOOD AND DRUG INSPECTOR Gender Identity Not on file Sexual Orientation Not on file Obstetrics History Para Term AB IAB SAB Ectopic Multiple Livin g Live Births 3 2 2 2 Date Outcome GA Total Labor Labor/2nd/3rd Weight Sex Type Anes PTL Mary A1 A5 Name Clin Term Term Last Filed Vital Signs Vital Sign Reading Time Taken Comments Blood Pressure 166/98 03/14/2014 3:48 PM FOOD AND DRUG INSPECTOR Pulse 93 03/14/2014 3:48 PM FOOD AND DRUG INSPECTOR Temperature - - Respiratory Rate - - [...] - BOTH EYES Routine 03/21/2025 9:21 AM FOOD AND DRUG INSPECTOR Retinal detachment with multiple breaks, right eye SCREENING MAMMOGRAM BILATERAL W BAKARI Schedule Routine, Read Routine (OP Routine) 02/13/2025 11:58 AM CDT Screening mammogram, encounter for from Last 3 Months Results * OCT, Retina - OU - Both Eyes (03/21/2025 9:21 AM FOOD AND DRUG INSPECTOR) Anatomical Region Laterality Modality Head Optical Coherenc e Tomography Narrative 03/21/2025 9:21 AM FOOD AND DRUG INSPECTOR Right Eye Quality was good. Left Eye [...] from Last 3 Months Insurance T MEDICARE [facility] MEDICARE [facility] MEDICARE Care Teams Solaris Administrator Relationship Specialty Start Date End Date Raymon Collier MD PCP - General Family Practice 01/21/22
== END 2025-04-24 12:54 | disposition home or self-care (01) ==
LOC: ANHFOHIMG 12:54
PROVIDERS: PCP Family Medicine; Visit Provider Family Medicine
DX: Z78.0 Asymptomatic menopausal state (principal); M85.88 Other specified disorders of bone density and structure, other site; M85.852 Other specified disorders of bone density and structure, left thigh; M85.851 Other specified disorders of bone density and structure, right thigh; M81.0 Age-related osteoporosis without current pathological fracture
CPT/HCPCS: 77080